=== PATIENT | female | born 1955 | race Caucasian/White ===

== ENCOUNTER 2017-06-25 18:04 | Emergency (ER) | payer BC ==
[2017-06-25 18:19] VITALS: BP 145/96
--- NOTE | 2017-06-25 18:49 | EDM.PDOC ---
ED HPI GENERAL MEDICAL PROBLEM - General Chief Complaint: Skin Complaint Stated Complaint: Rash Time Seen by Provider: 06/25/17 18:20 Source of Information: Reports: Patient, RN Notes Reviewed History Limitations: Reports: No Limitations - History of Present Illness INITIAL COMMENTS - FREE TEXT/NARRATIVE: 62 year old female presents to the ED with complaints of rash to her left, lateral breast. She says the area was sensitive to touch prior to onset of rash. She says the area is painful and azul. The area is red with blisters. No additional areas of rash. She denies fever, chills, or recent illness. No history of shingles. She has not had the shingles vaccination. 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 Denies: Fever, Chills, Malaise Respiratory: Reports: No Symptoms. Denies: Shortness of Breath Cardiovascular: Reports: No Symptoms. Denies: Chest Pain Skin: Reports: Rash, Erythema ED EXAM, SKIN/RASH Exam: See Below Exam Limited By: No Limitations General Appearance: Alert, WD/WN, No Apparent Distress Respiratory/Chest: No Respiratory Distress, Lungs Clear, Normal Breath Sounds Cardiovascular: Regular Rate, Rhythm Neurological: Alert, Oriented, Normal Cognition Skin: Warm, Dry, Normal Color, Zoster-Like Rash (left breast ) Course - Vital Signs Last Recorded V/S: Last Vital Signs Temp 98.7 F 06/25/17 18:12 Pulse 63 06/25/17 18:12 Resp 16 06/25/17 18:12 BP 145/96 H 06/25/17 18:12 Pulse Ox 99 06/25/17 18:12 Departure - Departure Time of Disposition: 18:46 Disposition: Home, Self-Care 01 Condition: Good Clinical Impression: Shingles Qualifiers: Herpes zoster complications: without complications Qualified Code(s): B02.9 - Zoster without complications - Discharge Information Prescriptions: valACYclovir [Valtrex] 1,000 mg PO Q8H #42 tablet Instructions: Shingles, [id number] Referrals: PCP,None [Primary Care Provider] - Forms: ED Department Discharge Additional Instructions: Calamine lotion to rash Tylenol or Ibuprofen as needed for pain Valacyclovir 1000mg every 8 hours for a total of 7 days No close contact with babies or with people who have poor immune systems until your rash has crusted and begins to heal. Follow-up with your primary care provider as needed
== END 2017-06-25 19:04 | disposition home or self-care (01) ==
LOC: JD.ED 18:04
DX: B02.9 Zoster without complications (principal); I10 Essential (primary) hypertension; Z98.890 Other specified postprocedural states; Z79.82 Long term (current) use of aspirin; Z79.899 Other long term (current) drug therapy; Z86.73 Personal history of transient ischemic attack (TIA), and cerebral infarction without residual deficits
CPT/HCPCS: 99283